=== PATIENT | male | born 1970 | race Caucasian/White ===

== ENCOUNTER 2017-03-17 08:31 | Observation (INO) | payer OTHER ==
[~2017-03-17 08:31] MED LIST: Buffered Lidocaine 0.9% SYRIN* 5 ML/SYR SYRINGE INTRADERM ONE; Buffered Lidocaine 0.9% SYRIN* 5 ML/SYR SYRINGE ONE; Famotidine IV* 10 MG/ML 2 ML (20 mg) IV ONE; Famotidine IV* 10 MG/ML 2 ML (20 mg) ONE; Metoclopramide TAB* 10 MG ONE; Metoclopramide TAB* 10 MG PO ONE; ceFAZolin 2 GM PREMIX (*) 50 ML IVPB ONE
[2017-03-17] MEDS ORDERED: Ondansetron INJ* 2 MG/ML VIAL ONE (08:54)
[2017-03-17] MEDS ORDERED: KETAMINE HCL* 50 MG/ML 10 ML VIAL ONE (08:54)
[2017-03-17] MEDS ORDERED: Dexamethasone IV* 4 MG/ML 1 ML (4 MG) ONE (08:54)
[2017-03-17] MEDS ORDERED: Lidocaine 2% PF * 5 ML VIAL ONE (08:54)
[2017-03-17] MEDS ORDERED: Cisatracurium* 2 MG/ML MDV 5 ML ONE (08:54)
[2017-03-17] MEDS ORDERED: Midazolam* 1 MG/ML 5 ML VIAL (5 MG) ONE (08:54)
[2017-03-17] MEDS ORDERED: Propofol* 10 MG/ML 20 ML BTL IV PUSH ONE (08:54)
[2017-03-17] MEDS ORDERED: fentaNYL* 50 MCG/ML 2 ML VIAL (100 MCG VIAL) ONE ×2 (08:54→12:06)
[2017-03-17] MEDS ORDERED: Lidocaine 1% MPF wEPI 200,000* 30 ML SDV ONE (10:24)
[2017-03-17] MEDS ORDERED: Bacitracin IV* 50,000 UNITS INJ ONE (10:24)
[2017-03-17] MEDS ORDERED: Thrombin 5,000 UNITS* 1 APPLIC KIT - topical use - TOPICAL ONE (10:24)
[2017-03-17] MEDS ORDERED: fentaNYL* 50 MCG/ML 2 ML VIAL (100 MCG VIAL) IV PRN (11:31)
[2017-03-17] MEDS ORDERED: Levalbuterol 0.63MG/3ML NEB* UNIT OF USE INH PRN (11:31)
[2017-03-17] MEDS ORDERED: Ondansetron INJ* 2 MG/ML VIAL IV PRN ×2 (11:31→12:11)
[2017-03-17] MEDS ORDERED: oxyCODONE/Acetamin 5/325 MG* TAB PO PRN (11:31)
[2017-03-17] MEDS ORDERED: Acetaminophen TAB* 325 MG PO PRN (12:11)
[2017-03-17] MEDS ORDERED: Mouth Piece, Nicotine* 1 EACH CARTRIDGE INH PRN (12:13)
[2017-03-17] MEDS ORDERED: HYDROmorphone INJ* 1 MG/ML CARPUJECT SYRINGE ONE (12:48)
[2017-03-17] MEDS: HYDROmorphone INJ* 1 MG/ML CARPUJECT SYRINGE IV PRN ×2 (12:50→13:10)
[2017-03-17] MEDS ORDERED: HYDROcodone/ACETAMIN 5-325 MG* 1 TAB ONE (13:38)
[2017-03-17] MEDS: HYDROcodone/ACETAMIN 5-325 MG* 1 TAB PO PRN ×2 (13:39→17:39)
[2017-03-17] MEDS: Nicotine PATCH 21 MG/24 HR* PATCH TRANSDERM SCH (14:47)
[2017-03-17] MEDS: Nicotine Inhaler* 10 MG AMP INH PRN ×2 (15:03→21:49)
[2017-03-17] MEDS ORDERED: Morphine INJ* 4 MG/ML 1 ML CARPUJECT IV PRN (19:35)
[2017-03-17] MEDS: oxyCODONE/Acetamin 5/325 MG* TAB PO PRN (21:37)
[2017-03-18] MEDS: oxyCODONE/Acetamin 5/325 MG* TAB PO PRN ×3 (01:42→09:54)
[2017-03-18] MEDS ORDERED: Nicotine Patch Removal NOTE FOLLOW UP SCH (06:00)
--- NOTE | 2017-03-18 07:51 | PN ---
Progress Note - Progress Note Date of Service: 03/18/17 SOAP: Subjective: [This is a 46 year old male s/p redo lumbar discectomy L5-S1 on the left, POD # 1. He is feeling well this morning. Pain in the LLE is improved although he complains of aching. He is ambulating well with a walker. He also complains of low back incisional pain. Denies new numbness and tingling. No headache. ] Objective: [ Vital Signs: Temp Pulse Resp BP Pulse Ox 97.8 F 58 16 106/60 98 03/18/17 03:58 03/18/17 03:58 03/18/17 05:47 03/18/17 03:58 03/18/17 04:10 General: Alert and oriented. No distress. Neuro: Motor and sensory intact. Extremities: Full ROM. Incision: Intact with abena. ] Assessment: [Satisfactory post-op course. ] Plan: [1. Discharge home today. 2. Discharge instructions including wound care and activity level discussed with the patient. ]
[2017-03-18] MEDS: Nicotine PATCH 21 MG/24 HR* PATCH TRANSDERM SCH (07:59)
[2017-03-18 08:02] VITALS: BP 114/57
--- NOTE | 2017-03-20 12:45 | OP ---
OPERATIVE REPORT: DATE OF OPERATION: 03/17/17 DATE OF : 68 PRIMARY SURGEON: Sergio Ambrose MD FISH HATCHERY ASSISTANT: JEROD Wiley ANESTHESIA: General. 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 OPERATIVE PROCEDURE: Redo lumbar diskectomy, L5-S1 on the left with microdissection. DESCRIPTION OF PROCEDURE: After satisfactory general anesthesia was obtained, the patient was place d on the operating table in the prone position with the chest supported on the Efrain frame and the back slightly flexed. The lumbar region was then clipped, prepped, and draped in a sterile manner f or a lumbar laminectomy and a skin incision outlined along the previous incision from L5 to S1. Thi s incision was infiltrated with 1% Xylocaine with epinephrine; after which, it was turned down sharp ly to the level of the lumbar fascia and scar tissue. The paraspinal musculature and scar tissue wa s dissected free from the posterior elements of L4, L5, and sacrum. An intraoperative x-ray was obt ained verifying proper interspace localization; after which, his previous laminectomy at L5-S1 on th e left was extended superiorly with the Kerrison rongeurs and Midas Valentin drill. The inferior aspect of the laminectomy was also dissected free and extended somewhat inferiorly. At this point of the pr ocedure, the operating microscope was brought into the field and the remainder of the procedure was done under microscopic visualization. There was noted to be marked epidural scar tissue at this lev el. This was dissected free utilizing microdissection. Ultimately, multiple fragments of disk mate rial were removed were beneath the nerve root and trenched in scar tissue. The interspace itself wa s entered and cleared of any loose disk material using pituitary forceps and curettes. At the concl usion of the decompression, the S1 nerve root was noted to be free in its course. After assuring ad equate hemostasis, the wound was thoroughly irrigated; after which, a piece of Gelfoam was placed ov er the laminectomy defect. The fascia was then reapproximated with 0 Vicryl suture and subcutaneous tissue was closed with 3-0 Vicryl suture and the skin closed with skin clips. The estimated blood loss was less than 50 cc and the final sponge, padding, and needle counts were correct. The patient was taken to the recovery room, extubated, and in stable condition. [id number]/[id number] #: [id number]
== END 2017-03-18 10:10 | disposition home or self-care (01) ==
LOC: OR 08:31 → SSU 14:33
PROVIDERS: ADMIT Neurological Surgery; ATTEND Neurological Surgery
PROC: 01NB0ZZ Release Lumbar Nerve, Open Approach (ICD-10-PCS; 2017-03-17)
PROC: 0SB20ZZ Excision of Lumbar Vertebral Disc, Open Approach (ICD-10-PCS; principal; 2017-03-17 10:00)
DX: M51.17 Intervertebral disc disorders with radiculopathy, lumbosacral region (principal); F17.210 Nicotine dependence, cigarettes, uncomplicated
CPT/HCPCS: 96374; 96375; A9270-GY; G0378; J0690; J1100; J1170; J2001; J2250; J2270; J2405; J2704; J3010